=== PATIENT | male | born 1965 | race Two or more races ===

== ENCOUNTER → 2024-05-04 11:35 | Outpatient (REF) | payer BC, SELFPAY ==
[2024-05-04 13:13] LABS: Hematocrit 43.1 % (39.0-52.0); Hemoglobin 15.3 g/dL (13.0-18.0); Mean Corp Hgb Conc. 35.5 g/dL (33.0-37.0); Mean Corpuscular Volume 87.2 fL (80.0-94.0); Red Blood Cell Count 4.94 10^6/uL (4.70-6.10); Red Cell Dist. Width 12.1 % (11.5-14.5); White Blood Cell Count 6.2 10^3/uL (4.8-10.8)
== END ==
LOC: REG 11:35
PROVIDERS: ATTENDING PHYSICIAN Family Medicine
DX: D69.6 Thrombocytopenia, unspecified (principal); D69.1 Qualitative platelet defects
CPT/HCPCS: 36415; 85027